=== PATIENT | male | born 1960 | race Caucasian/White ===

== ENCOUNTER → 2016-08-12 | Outpatient (CLI) | payer BC ==
--- NOTE | 2016-08-12 22:19 | US ---
EXAMINATION TYPE: US thyroid st tissue head/neck DATE OF EXAM: 08/12/2016 3:19 PM COMPARISON: NONE CLINICAL HISTORY: 55-year-old male R59.9 Enlarged Lymph nodes, patient states that this was a follow- up from his carotid us. TECHNIQUE: Multiple sonographic images of the thyroid gland are obtained. FINDINGS: GLAND SIZE: Right Lobe: 5.4 x 2.4 x 1.8 cm Overall Parenchyma: heterogenous Left Lobe: 5.5 x 2.1 x 2.8 cm Overall Parenchyma: heterogeneous Isthmus Thickness: 0.9 cm No discrete nodule. Bilateral neck scanned, no evidence of lymphadenopathy. IMPRESSION: Thyromegaly without discrete nodule.
== END | disposition home or self-care (01) ==
LOC: RADUSWWP 14:46
PROVIDERS: ATTEND Family Medicine
DX: E01.0 Iodine-deficiency related diffuse (endemic) goiter (principal)
CPT/HCPCS: 76536

== ENCOUNTER → 2023-11-24 | Outpatient (CLI) | payer BC | END | disposition home or self-care (01) | LOC: LABPRL 11:25 | PROVIDERS: ATTEND Family Medicine | DX: Z00.00 Encounter for general adult medical examination without abnormal findings | CPT/HCPCS: 80053; 80061; 83036; 84443; 85025 ==